=== PATIENT | male | born 1990 | race Caucasian/White ===

== ENCOUNTER 2021-11-05 22:11 | Emergency (ER) | payer OTHER ==
[2021-11-06 02:03] LABS: HEMOGLOBIN 14.6 gm/dl (14.0-17.5); RED BLOOD COUNT 4.94 M/UL (4.20-5.50); WHITE BLOOD COUNT 7.2 K/UL (4.5-11.0)
[2021-11-06 02:27] LABS: BUN/CREATININE RATIO 19 (0-10)
== END 2021-11-06 02:51 | disposition home or self-care (01) ==
LOC: ER1 22:11
PROVIDERS: Physician Assistant
DX: R07.9 Chest pain, unspecified (principal); F17.210 Nicotine dependence, cigarettes, uncomplicated; F19.20 Other psychoactive substance dependence, uncomplicated; Z88.6 Allergy status to analgesic agent; Z88.5 Allergy status to narcotic agent
CPT/HCPCS: 71045; 73502; 80053; 82550; 82553; 84484; 85025; 85379; 85652; 86140; 87040; 93005; 99285

== ENCOUNTER 2021-11-12 08:30 | Emergency (ER) | payer OTHER ==
[2021-11-12] MEDS ORDERED: CLEOCIN HCL300 MG PO (09:37)
[2021-11-12] MEDS ORDERED: IBUPROFEN800 MG PO (09:37)
== END 2021-11-12 10:18 | disposition home or self-care (01) ==
LOC: ER1 08:30
DX: K04.7 Periapical abscess without sinus (principal); F17.210 Nicotine dependence, cigarettes, uncomplicated; I25.2 Old myocardial infarction
CPT/HCPCS: 99283

== ENCOUNTER → 2022-02-26 | Outpatient (CLI) | payer OTHER ==
[~2022-02-26] MED LIST: CLEOCIN HCL300 MG PO; IBUPROFEN800 MG PO
== END ==
LOC: RAD 12:31
DX: M25.551 Pain in right hip (principal)
CPT/HCPCS: 73502

== ENCOUNTER → 2022-03-13 | Outpatient (CLI) | payer OTHER ==
[2022-03-13 13:37] LABS: RED BLOOD COUNT 4.49 M/UL (4.20-5.50); WHITE BLOOD COUNT 8.9 K/UL (4.5-11.0)
[2022-03-13 13:57] LABS: BUN/CREATININE RATIO 26 (0-10)
[2022-03-14 06:09] LABS: HIV AB/P24 AG SCREEN Non Reactive (Non Reactive)
[2022-03-14 07:09] LABS: HEPATITIS B SURF AB QUANT 18.3 mIU/mL (Immunity>9.9); RPR Non Reactive (Non Reactive); VITAMIN D, 25-HYDROXY 36.6 ng/mL (30.0-100.0)
[2022-03-14 08:12] LABS: THYROXINE (T4) 5.1 ug/dL (4.5-12.0)
[2022-03-17 15:09] LABS: HBSAG SCREEN Negative (Negative); HCV AB >11.0 (0.0-0.9); HEP A AB, IGM Negative (Negative); HEP B CORE AB, IGM Negative (Negative); HEPATITIS C QUANTITATION HCV Not Detected IU/mL (.)
[2022-03-17 21:11] LABS: QUANTIFERON MITOGEN VALUE >10.00 IU/mL (.); QUANTIFERON NIL VALUE 0.03 IU/mL (.); QUANTIFERON TB1 AG VALUE 0.03 IU/mL (.); QUANTIFERON TB2 AG VALUE 0.04 IU/mL (.); QUANTIFERON-TB GOLD PLUS Negative (Negative)
== END ==
LOC: LAB 11:35
DX: Z11.4 Encounter for screening for human immunodeficiency virus [HIV] (principal); Z13.228 Encounter for screening for other metabolic disorders; Z11.59 Encounter for screening for other viral diseases; R94.6 Abnormal results of thyroid function studies; R68.89 Other general symptoms and signs; E55.9 Vitamin D deficiency, unspecified; E78.00 Pure hypercholesterolemia, unspecified; D51.9 Vitamin B12 deficiency anemia, unspecified
CPT/HCPCS: 36415; 80053; 80061; 80074; 82248; 82607; 82728; 83036; 83540; 83735; 84436; 84443; 84481; 85025; 86317; 86592; 86704; 87389